=== PATIENT | male | born 1985 | race Caucasian/White ===

== ENCOUNTER 2017-03-24 23:01 | Emergency (ER) | payer SELFPAY ==
[2017-03-25 01:01] VITALS: BP 127/74
== END 2017-03-25 01:01 | disposition home or self-care (01) ==
LOC: ED 23:01
DX: S29.8XXA Other specified injuries of thorax, initial encounter (principal); X50.0XXA Overexertion from strenuous movement or load, initial encounter; Y93.89 Activity, other specified; Y99.8 Other external cause status; Y92.89 Other specified places as the place of occurrence of the external cause
CPT/HCPCS: J1885